=== PATIENT | female | born 1995 | race Caucasian/White ===

== ENCOUNTER 2018-08-18 13:03 | Emergency (ER) | payer MEDICAID ==
[2018-08-18 13:17] VITALS: BP 115/87
--- NOTE | 2018-08-18 13:41 | EDPHY ---
H & P Stated Complaint: st, productive cough, earache, 4 days Time Seen by Provider: 08/18/18 13:11 HPI/ROS: CHIEF COMPLAINT: Cough, sore throat HISTORY OF PRESENT ILLNESS: This is a 22-year-old female who presents with 4 days of cough, sore throat, runny nose and nasal congestion, and myalgias. She has not had fever. She does not feel short of breath but does experienced chest pain when coughing. She has bilateral ear pain that she thinks is related to her nasal congestion. No sinus drainage. She has not had an influenza vaccination this year. She tells me that she had influenza earlier in the season. Her children have been ill with similar symptoms, there recovering. She was seen at [facility] today just after midnight with the above symptoms. A chest x-ray was done and she was told that it was normal. She was given a nasal spray, name unknown, and advised to use ibuprofen. She took ibuprofen 400 mg prior to coming to the emergency department. REVIEW OF SYSTEMS: A ten system review of systems was performed and is negative with the exception of the items mentioned in the HPI. Past medical history: Recurrent ear infections Past surgical history: Ear tubes Social history: She lives with her 2 children, ages 3 and 1. She does not use tobacco products. She is not currently employed outside of the home. General Appearance: Alert. Vital signs reviewed. Eyes: Pupils equal and round, no conjunctival injection, no discharge. Anicteric. ENT, Mouth: Mucous membranes are moist, moderate oropharyngeal erythema without edema or exudates. Ear tubes in place bilaterally. External auditory canals normal. Neck: Scattered anterior cervical lymphadenopathy, supple. Respiratory: Lungs are clear to auscultation; no wheezes, rales, or rhonchi. Cardiovascular: Regular rate and rhythm; no murmur, rub, or gallop. Gastrointestinal: Abdomen is soft and nontender, no masses or organomegaly, bowel sounds normal. Skin: Warm and dry, no rashes on exposed skin, normal color. Back: No CVAT. Extremities: No lower extremity edema, no calf tenderness or swelling. Neurological: Alert and oriented. Moving all four extremities easily and equally. Psychiatric: Normal affect. - Personal History Tetanus Vaccine Date: within 10 yEARS - Medical/Surgical History Hx Asthma: No Hx Chronic Respiratory Disease: No Hx Diabetes: No Hx Cardiac Disease: No Hx Renal Disease: No Hx Cirrhosis: No Hx Alcoholism: No Hx HIV/AIDS: No Hx Splenectomy or Spleen Trauma: No Other PMH: ear tubes, x 2, arthritis in knees, strepp throat - Social History Smoking Status: Former smoker Constitutional: Initial Vital Signs Temperature (C) 37.2 C 08/18/18 13:11 Heart Rate 80 08/18/18 13:11 Respiratory Rate 18 08/18/18 13:11 Blood Pressure 115/87 H 08/18/18 13:11 O2 Sat (%) 92 08/18/18 13:11 O2 Delivery Mode Room Air Allergies/Adverse Reactions: No Known Allergies Allergy (Verified 08/18/18 13:17) Home Medications: Medication Instructions Recorded Flonase Nasal Etoile 08/18/18 Hydrocodone/APAP 5/325 [Carlton 1 - 2 tab PO Q4 PRN #10 tab 08/18/18 5/325 (RX)] Ibuprofen 08/18/18 Medical Decision Making ED Course/Re-evaluation: Signs and symptoms of respiratory infection. She does not have fever or appear toxic. She had normal chest x-ray within the past 12 hr and has normal lung exam no hypoxia. I do not recommended chest x-ray. This could be influenza. She has been ill for 4 days and I do not think that influenza testing will be beneficial in this setting, as antivirals would not be recommended for her. She agrees with this. Using Centor criteria she has a score of 1 making strep pharyngitis unlikely (5-10% probability). I do not recommend strep throat testing. At this point I think that symptom management will be most helpful. I am prescribing a small quantity of Vicodin for control of cough. We discussed other symptomatic measures such as Tylenol and ibuprofen, salt water gargles, throat lozenges, tea with honey. She understands that this illness will likely last few more days. We reviewed the danger signs that should prompt her to be re-evaluated immediately. Differential Diagnosis: I considered a differential diagnosis that includes but is not limited to pneumonia, bronchitis, influenza, URI, strep pharyngitis, epiglottitis, and retropharyngeal abscess. Departure - Departure Disposition: Home, Routine, Self-Care Clinical Impression: Acute upper respiratory infection Condition: Good Instructions: Upper Respiratory Infection (ED) Additional Instructions: Follow up with your doctor at [facility] if you are not getting better. Use the Vicodin (Carlton) for cough and for pain. This medication contains hydrocodone and Tylenol. The hydrocodone is an opiate pain medication. I am giving you some written information about narcotics. You should not drive or engage in potentially dangerous activity when taking this medication. It is okay few take additional Tylenol but keep track of any Tylenol that you take. Each Vicodin tablet contains 325 mg of Tylenol. You should not take more than 3000 mg of Tylenol in a 24 hr time span. Adult Pain & Fever Control: We recommend Acetaminophen (Tylenol) and Ibuprofen (Motrin,Advil) for pain and fever control. When fever is high or pain severe, both drugs can be used at the same time, but at different intervals. Please note the time differences. Your dose is: Acetaminophen [650]mg every 4 to 6 hours Ibuprofen [400]mg every [6] hours with food OR Note: do not take Acetaminophen with Hydrocodone (Vicodin, Lortab) or Oycodone (Percocet) or, if you do, keep track of the overall amount of Tylenol that you take. These medications also contain Acetaminophen. No more than 3000mg of Acetaminophen should be taken in 24 hours (for an adult). Continue with salt water gargles, throat lozenges, any of the [id number] medications that seem to help her symptoms. I recommend [place] Throat Coat tea. Mix it with some honey. Stand Alone Forms: Narcotic Guidelines Prescriptions: Hydrocodone/APAP 5/325 [Carlton 5/325 (RX)] 1 - 2 tab PO Q4 PRN #10 tab PRN Reason: pain
== END 2018-08-18 13:50 | disposition home or self-care (01) ==
LOC: CED 13:03
DX: J06.9 Acute upper respiratory infection, unspecified (principal); Z87.891 Personal history of nicotine dependence
CPT/HCPCS: 99283-ER

== ENCOUNTER 2018-10-01 10:11 | Emergency (ER) | payer MEDICAID ==
--- NOTE | 2018-10-01 11:13 | EDPHY ---
H & P Stated Complaint: Sore throat Time Seen by Provider: 10/01/18 11:02 HPI/ROS: CHIEF COMPLAINT: Sore throat HISTORY OF PRESENT ILLNESS: Patient is a 23-year-old female who states that she is prone to having strep throat. She developed sore throat yesterday and came to get it evaluated. She has not had a fever. Mild runny nose but no sinus congestion. No headache or stiff neck. She is currently on day 3 of Ceftin. She is taking this for recent diagnosis of urinary tract infection along with Pyridium. She states that the urine symptoms have resolved. No rashes. No GI symptoms. She has not taken any antipyretics. She does have a mild cough. No shortness of breath. Severity: Moderate Modifying factors: None REVIEW OF SYSTEMS: Constitutional: See HPI EENTM: See HPI Respiratory: See HPI Cardiac: denies: chest pain, irregular heart rate, lightheadedness, palpitations Gastrointestinal/Abdominal: denies: abdominal pain, diarrhea, nausea, vomiting, blood streaked stools Genitourinary: denies: dysuria, frequency, hematuria, pain Musculoskeletal: denies: joint pain, muscle pain Skin: denies: lesions, rash, jaundice, bruising Neurological: denies: headache, numbness, paresthesia, tingling, dizziness, weakness Hematologic/Lymphatic: denies: blood clots, easy bleeding, easy bruising Immunologic/allergic: denies: HIV/AIDS, transplant 10 systems reviewed and negative except as noted EXAM: GENERAL: Well-appearing, well-nourished and in no acute distress. Active, walking around the department looking for food. HEAD: Atraumatic, normocephalic. EYES: Pupils equal round and reactive to light, extraocular movements intact, sclera anicteric, conjunctiva are normal. ENT: TMs normal, nares patent, oropharynx mild erythema but no exudate. Moist mucous membranes. NECK: Normal range of motion, supple without lymphadenopathy or JVD. LUNGS: Breath sounds clear to auscultation bilaterally and equal. No wheezes rales or rhonchi. HEART: Regular rate and rhythm without murmurs, rubs or gallops. ABDOMEN: Soft, nontender, normoactive bowel sounds. No guarding, no rebound. No masses appreciated. BACK: No CVA tenderness, no spinal tenderness, step-offs or deformities EXTREMITIES: Normal range of motion, no pitting or edema. No clubbing or cyanosis. NEUROLOGICAL: Cranial nerves II through XII grossly intact. Normal speech, normal gait. 5/5 strength, normal movement in all extremities, normal sensation , normal reflexes PSYCH: Normal mood, normal affect. SKIN: Warm, dry, normal turgor, no visible rashes or lesions. Source: Patient Exam Limitations: No limitations - Personal History Tetanus Vaccine Date: within 10 yEARS - Medical/Surgical History Hx Asthma: No Hx Chronic Respiratory Disease: No Hx Diabetes: No Hx Cardiac Disease: No Hx Renal Disease: No Hx Cirrhosis: No Hx Alcoholism: No Hx HIV/AIDS: No Hx Splenectomy or Spleen Trauma: No Other PMH: ear tubes, x 2, - Family History Significant Family History: No pertinent family hx - Social History Smoking Status: Former smoker Alcohol Use: Sober Constitutional: Initial Vital Signs Temperature (C) 36.7 C 10/01/18 10:39 Heart Rate 108 H 10/01/18 10:39 Respiratory Rate 16 10/01/18 10:39 Blood Pressure 107/65 10/01/18 10:39 O2 Sat (%) 96 10/01/18 10:39 O2 Delivery Mode Room Air Allergies/Adverse Reactions: No Known Allergies Allergy (Verified 10/01/18 10:27) Home Medications: Medication Instructions Recorded Cefuroxime Axetil [Cefuroxime] 500 10/01/18 Phenazopyridine HCl 10/01/18 Medical Decision Making ED Course/Re-evaluation: The patient does have erythema in her throat however she is currently on antibiotics. We discussed the fact that it is unlikely to be strep throat and if it is the antibiotic should help. It is more likely viral. I encouraged rest and hydration. She is well-appearing and very active here in the department. She has been afebrile. We discussed indications for returning. We also discussed follow-up. She will continue taking her Ceftin. Differential Diagnosis: Partial list of the Differential diagnosis considered include but were not limited to; pharyngitis, strep throat, abscess, UTI and although unlikely based on the history and physical exam, I also considered pneumonia, sepsis. Departure - Departure Disposition: Home, Routine, Self-Care Clinical Impression: Acute pharyngitis Qualifiers: Pharyngitis/tonsillitis etiology: unspecified etiology Qualified Code(s): J02.9 - Acute pharyngitis, unspecified Condition: Fair Instructions: Pharyngitis (ED) Referrals: VEE CAMPOS [Primary Care Provider] - 2-3 days, if not improved
[2018-10-01 11:19] VITALS: BP 107/65
== END 2018-10-01 11:21 | disposition home or self-care (01) ==
LOC: CED 10:11
DX: J02.9 Acute pharyngitis, unspecified (principal)
CPT/HCPCS: 99282-ER